=== PATIENT | male | born 1990 | race Caucasian/White ===

== ENCOUNTER 2024-01-02 10:15 | Emergency (ER) | payer OTHER ==
[~2024-01-02] VITALS: Ht 172.7 cm; Wt 78.0 kg
[2024-01-02] MEDS ORDERED: ONDANSETRON HCL/PF 4 MG/2 ML VIAL ONE (10:41)
[2024-01-02] MEDS: IV NS 0.9% 1,000 ML BAG IV ONE (10:42)
[2024-01-02] MEDS: ONDANSETRON HCL/PF 4 MG/2 ML VIAL IVP ONE (10:43)
[2024-01-02 10:44] LABS: BASOPHILS % (AUTO) 0.3 % (0.0-2.0); EOSINOPHILS # (AUTO) 0.1 K/uL (0.0-0.7); EOSINOPHILS % (AUTO) 0.7 % (0.0-6.0); HEMATOCRIT 49 % (39-51); HEMOGLOBIN 16.8 g/dL (13.5-17.5); LYMPHOCYTES # (AUTO) 0.9 K/uL (0.8-4.8); LYMPHOCYTES % (AUTO) 10.8 % (20.0-44.0); MEAN CORPUSCULAR HEMOGLOBIN 30 PG (26.0-33.0); MEAN CORPUSCULAR HGB CONC 35 g/dl (31.0-36.0); MEAN CORPUSCULAR VOLUME 87 fL (80-96); MONOCYTES # (AUTO) 0.5 K/uL (0.1-1.30); MONOCYTES % (AUTO) 6.2 % (2.0-12.0); NEUTROPHILS # (AUTO) 7.2 K/uL (1.8-8.9); PLATELET COUNT (AUTO) 197 K/uL (150-450); RED BLOOD CELL COUNT(AUTO) 5.58 MIL/uL (4.5-6.0); RED CELL DISTRIBUTION WIDTH 13.6 % (11.5-15.0); WHITE BLOOD COUNT (AUTO) 8.8 K/uL (4.3-11.0)
[2024-01-02 10:56] LABS: ALBUMIN 4.3 g/dL (3.4-5.0); BILIRUBIN,DIRECT 0.3 mg/dL (0.0-0.2); BILIRUBIN,TOTAL 1.5 mg/dL (0.2-1.0); CREATININE 0.9 mg/dL (0.6-1.3); POTASSIUM 3.9 mmol/L (3.5-5.1); TOTAL PROTEIN, SERUM 7.7 g/dL (6.4-8.2)
[2024-01-02] MEDS ORDERED: ONDA4TAB5 PO (11:10)
[2024-01-02 12:16] VITALS: BP 122/77; TEMP 98.4; O2SAT 100
== END 2024-01-02 12:17 | disposition home or self-care (01) ==
LOC: ER 10:24
DX: R11.10 Vomiting, unspecified (principal); R10.13 Epigastric pain; Z60.2 Problems related to living alone
CPT/HCPCS: 99285; 96374; 76700; 96361; 85025; 80048; 83690; 80076; 36415; J2405; J7030